=== PATIENT | male | born 1995 | race Caucasian/White ===

== ENCOUNTER → 2023-05-09 | Outpatient (CLI) | payer SELFPAY | LOC: M LAB 11:53 | PROVIDERS: ATTEND Nurse Practitioner Family | DX: Z53.9 Procedure and treatment not carried out, unspecified reason (principal); G90.A Postural orthostatic tachycardia syndrome [POTS]; I10 Essential (primary) hypertension; G31.84 Mild cognitive impairment of uncertain or unknown etiology; R07.9 Chest pain, unspecified; U09.9 Post COVID-19 condition, unspecified; G93.32 Myalgic encephalomyelitis/chronic fatigue syndrome ==